=== PATIENT | male | born 1995 | race Caucasian/White ===

== ENCOUNTER 2018-10-02 00:56 | Emergency (ER) | payer BC, OTHER ==
[2018-10-02] MEDS: CYCLOBENZAPRINE 10 MG TAB PO (01:45)
[2018-10-02] MEDS: KETOROLAC 60 MG INJ IM (01:45)
== END 2018-10-02 02:42 | disposition home or self-care (01) ==
LOC: FTE 00:56
DX: M54.5 Low back pain (principal)
CPT/HCPCS: 96372; 99284-25